=== PATIENT | male | born 1990 | race Asian ===

== ENCOUNTER 2017-06-25 13:58 | Inpatient (IN) | payer OTHER ==
[~2017-06-25] VITALS: Ht 167.6 cm; Wt 60.3 kg
[2017-06-25] MEDS ORDERED: ONDANSETRON HCL INJ 2 MG/ML VIAL ONE (15:25)
[2017-06-25] MEDS ORDERED: ROCURONIUM BROMIDE 10 MG/ML 5ML VIAL ONE (15:25)
[2017-06-25] MEDS ORDERED: LIDOCAINE HCL 2% LOCAL INJ 5 ML SDV VIAL INJ ONE (15:25)
[2017-06-25] MEDS ORDERED: DEXAMETHASONE SOD PHOS INJ 4 MG/ML VIAL ONE (15:25)
[2017-06-25] MEDS ORDERED: CEFOXITIN SOD 1 GM VIAL ONE (15:25)
[2017-06-25] MEDS ORDERED: PROPOFOL IV EMULSION 10 MG/ML 20 ML VIAL ONE (15:25)
[2017-06-25] MEDS ORDERED: SEVOFLURANE INHAL SOLN 250 ML PEN BTL ONE (15:25)
[2017-06-25] MEDS ORDERED: GLYCOPYRROLATE INJ 1MG/ 5 ML SYR ONE (15:25)
[2017-06-25] MEDS ORDERED: NEOSTIGMINE 5 MG/5ML SYR ONE (15:25)
[2017-06-25] MEDS ORDERED: SODIUM CHLORIDE 0.9% 1000ML 1,000 ML IV SCH (17:32)
[2017-06-25] MEDS ORDERED: ONDANSETRON HCL INJ 2 MG/ML VIAL IV PRN (17:45)
[2017-06-25] MEDS ORDERED: MIDAZOLAM HCL 2 MG/2 ML VIAL ONE (17:49)
[2017-06-25] MEDS ORDERED: FENTANYL CITRATE/PF 100MCG/2 ML INJ ONE (17:49)
[2017-06-25] MEDS ORDERED: MORPHINE SULFATE 2 MG/ML SYR IV PRN (18:00)
[2017-06-25] MEDS ORDERED: IOPAMIDOL 300MG/ML 100 ML INFUS..BTL IV ONE (18:15)
--- OUTSIDE RECORDS SUMMARY | 2017-06-25 19:24 | XMS REPORT | Continuity of Care Document ---
Author Author [facility] Organization [facility] Address [address] [address] Phone Unavailable Care Team Providers Care Pharmacy Technician Assistant Name Role Phone NO, PCP PCP Unavailable Advance Directives Directive Response Recorded Date/Time Does the patient have an advance directive? No 06/25/17 2:59pm If yes, is advance directive on file with [facility]? No 06/25/17 2:59pm If not on file with [facility] will patient provide a copy? No 06/25/17 2:59pm Do you have a Directive to Physician? No 06/25/17 2:59pm Do you have a Medical Power of Skydiving Instructor? No 06/25/17 2:59pm Do you have an out of hospital Do Not Resuscitate Order? No 06/25/17 2:59pm Do you have any special needs we should be aware of? No 06/25/17 2:59pm Do you have a support person here with you today? Yes 06/25/17 2:59pm Did patient receive Notice of Privacy Practices? Yes 06/25/17 2:59pm Did patient receive patient rights and responsibilities? Yes 06/25/17 2:59pm Problems Medical Problem Onset Date Status Appendicitis Unknown Medications No known medications. Social History Smoking Status Start Date Stop Date Never Smoker Hospital Discharge Instructions No hospital discharge instruction information available. Plan of Care Discharge Date 06/25/17 6:53pm Disposition ADMITTED Condition at Discharge Stable Forms Provided Work/School Excuse Prescriptions See Medication Section Functional Status No functional status information available. Allergies, Adverse Reactions, Alerts No known allergies. Immunizations No immunization information available. Vital Signs Acute Vital Signs Vital Response Date/Time Height 5 ft 6 in 06/25/2017 2:52pm Weight 133 lb 06/25/2017 2:52pm Body Mass Index 21.5 kg/m^2 06/25/2017 2:52pm Results No relevant diagnostic test, laboratory data and/or discharge summary information available. Procedures No procedure information available. Encounters Encounter Location Arrival/Admit Date Discharge/Depart Date Attending Provider Departed Emergency Room [facility] 06/25/17 1:58pm 6:53pm MINH PEREZ MD
[2017-06-25] MEDS ORDERED: BUPIVACAINE 0.25%/EPI 30ML SDV INJ ONE (19:32)
[2017-06-25 20:00] VITALS: BP 110/74
--- NOTE | 2017-06-25 21:41 | Consultation ---
DATE OF CONSULTATION: June 25, 2017 CHIEF COMPLAINT: Abdominal pain. HISTORY OF PRESENT ILLNESS: The patient is a 26-year-old male with 2-day history of pain in right lower quadrant without nausea or vomiting, fever or chills. 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 PAST MEDICAL HISTORY: Unremarkable for any chronic medical illness or previous surgery. DRUG ALLERGIES: None. SOCIAL HABITS: He does not smoke or drink alcohol. REVIEW OF SYSTEMS: No chest pain, shortness of breath or cough. EXAM VITALS: Stable. He is afebrile. GENERAL: Patient is awake, alert, in moderate discomfort. HEENT: Sclerae anicteric. NECK: Supple. LUNGS: Clear. HEART: Regular rate, rhythm. ABDOMEN: Soft with some guarding tenderness, right lower quadrant without rebound. EXTREMITIES: Without cyanosis, edema. The patient's white cell count is 6. CT scan showed inflamed appendix without rupture. ASSESSMENT: Acute appendicitis. PLAN: Laparoscopic appendectomy. Attendant risks discussed with patient through his musical instrument maker or repairer. Job#: [id number]
[2017-06-25] MEDS ORDERED: MORPHINE SULFATE 2 MG/ML SYR ONE (21:42)
--- NOTE | 2017-06-25 21:49 | Operative Report ---
DATE OF PROCEDURE: June 25, 2017 PREOPERATIVE DIAGNOSIS: Appendicitis. POSTOPERATIVE DIAGNOSIS: Appendicitis. OPERATIVE PROCEDURE: Laparoscopic appendectomy. ANESTHESIA: General endotracheal, Dr. Villafana (sp?). INDICATIONS: Udxaul-ptik-pkan-old male with 2-day history of pain in the right lower quadrant. CT scan showed appendicitis. He had consented for laparoscopic appendectomy. Attendant risks discussed. PROCEDURE FINDINGS: Acute appendicitis. DESCRIPTION OF PROCEDURE: The patient brought to the OR, intubated. Abdomen prepped with alcohol and draped in sterile fashion. An infraumbilical incision is made and a 12-mm port inserted, insufflation then begun. Under direct vision, other port sites placed in the right upper quadrant and suprapubic area. The appendix is grossly inflamed, but not perforated. The base of the appendix is exposed by taking down the mesoappendix using LigaSure instrument. The neck of the appendix has a fecalith and therefore we had to dissect out to the base of the cecum and take a wedge of the base of cecum without compromising the ileocecal valve. This is carried out with an Endo RITU stapler blue load firing twice. The specimen placed in Endopouch and retrieved out the peritoneal cavity. Staple line is checked for bleeding and hemostasis achieved. Irrigation then carried out. All ports removed under direct vision. Fascia is then closed with interrupted #0 Vicryl, skin is closed with subcuticular stitch. Patient was extubated and transported to recovery room. ESTIMATED BLOOD LOSS: 5 mL. Job#: [id number]
[2017-06-25] MEDS ORDERED: HYDROMORPHONE 1MG/1ML INJ ONE (22:03)
[2017-06-25 22:30] VITALS: BP 110/74
[2017-06-26] VITALS (7 sets, daily range): BP systolic 107–125; BP diastolic 57–74
[2017-06-26] MEDS: SODIUM CHLORIDE 0.9% 1000ML 1,000 ML IV SCH ×4 (00:04→23:30)
[2017-06-26] MEDS: MORPHINE SULFATE 2 MG/ML SYR IV PRN ×3 (00:06→11:38)
[2017-06-26] MEDS: ONDANSETRON HCL INJ 2 MG/ML VIAL IV PRN ×3 (00:06→11:40)
--- NOTE | 2017-06-26 10:07 | History and Physical ---
PRIMARY CARE PHYSICIAN: Unknown. CHIEF COMPLAINT: Right lower abdominal pain. 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 Currently, his pain is about 6/10. He denies any other symptoms. He has been started on clear liquid diet. PAST MEDICAL HISTORY: None. PAST SURGICAL HISTORY: None. ALLERGIES: PER ELECTRONIC MEDICAL RECORD. FAMILY HISTORY/SOCIAL HISTORY: Patient is . He has no children. 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 Denies any illicits, cigarettes, or alcohol. MEDICATIONS: None. REVIEW OF SYSTEMS: Denies any fever, chills, or sweats. PHYSICAL EXAMINATION: VITAL SIGNS: Have been reviewed. GENERAL APPEARANCE: Tired-appearing man resting in bed. HEENT: Anicteric. Pupils respond to light. No oral lesions. CARDIOVASCULAR: Normal S1 and S2. LUNGS: Moderate breath sounds. ABDOMEN: Soft, nondistended. He has dressing at the laparoscopic site. EXTREMITIES: No edema. SKIN: Dry. PSYCHIATRIC: Normal affect. LABS: Reviewed. MEDICATIONS: Reviewed. ASSESSMENT AND PLAN: A 26-year-old man. 1. Acute appendicitis. He is status post laparoscopic appendectomy. 2. Abdominal pain. Will use p.r.n. pain medication. 3. Prophylaxis. Will use sequential compression devices and Pepcid. 4. Disposition. Clear liquid diet now. Monitor today and defer to surgery when to discharge later today versus tomorrow. Job#: [id number]
[2017-06-26] MEDS: FAMOTIDINE 20 MG/2 ML VIAL IV SCH ×2 (10:15→17:56)
[2017-06-26 10:28] LABS: BASOPHILS % 0.1 % (0.0-1.0); HEMATOCRIT 43.3 % (38.2-49.6); HEMOGLOBIN 15.1 g/dL (14.0-18.0); LYMPHOCYTES # (AUTO) 0.6 (1.0-3.2); LYMPHOCYTES % 7.5 % (18.0-39.1); MEAN CORPUSCULAR HEMOGLOBIN 28.1 pg (28-32); MEAN CORPUSCULAR HGB CONC 34.9 g/dL (31-35); MEAN CORPUSCULAR VOLUME 80.5 fL (81-99); MONOCYTES # (AUTO) 0.5 (0.2-0.8); MONOCYTES % 6.5 % (4.4-11.3); NEUTROPHILS # (AUTO) 6.5 (2.1-6.9); NEUTROPHILS % 85.6 % (38.7-80.0); PLATELET COUNT 200 x10e3/uL (140-360); RED BLOOD COUNT 5.38 x10e6/uL (4.3-5.7); RED CELL DISTRIBUTION WIDTH 12.7 % (11.7-14.4)
[2017-06-26 10:42] LABS: ANION GAP 12.9 mmol/L (8-16); BLOOD UREA NITROGEN 8 mg/dL (7-26); BUN/CREATININE RATIO 10 (6-25); CALCIUM 9.4 mg/dL (8.4-10.2); CARBON DIOXIDE 26 mmol/L (22-29); CHLORIDE 104 mmol/L (98-107); CREATININE, SERUM 0.82 mg/dL (0.72-1.25); EST GLOMERULAR FILTRATION RATE > 60 ML/MIN (60-); GLUCOSE 102 mg/dL (74-118); MAGNESIUM 1.9 MG/DL (1.3-2.1); PHOSPHORUS 3.8 MG/DL (2.3-4.7); POTASSIUM 3.9 mmol/L (3.5-5.1); SODIUM 139 mmol/L (136-145)
[2017-06-26] MEDS ORDERED: ACETAMINOPHEN/CODEINE 300MG - 30MG TAB PO PRN (11:45)
[2017-06-26 12:22] LABS: CLARITY,URINE CLEAR (CLEAR); COLOR,URINE YELLOW (YELLOW); KETONES,URINE 2+ (NEGATIVE); LEUKOCYTE ESTERASE ,URINE NEGATIVE (NEGATIVE); NITRITE,URINE NEGATIVE (NEGATIVE); PROTEIN,URINE DIPSTICK NEGATIVE (NEGATIVE)
[2017-06-26 12:23] LABS: BACTERIA,URINE RARE /HPF; BILIRUBIN,URINE NEGATIVE (NEGATIVE); EPITHELIAL CELLS,URINE RARE /LPF; URINE UROBILINOGEN 0.2 mg/dL (0.2 - 1)
[2017-06-26] MEDS: TAMSULOSIN HCL 0.4 MG CAP PO SCH ×2 (12:51→20:52)
[2017-06-27] VITALS: BP 100/57
[2017-06-27] MEDS: SODIUM CHLORIDE 0.9% 1000ML 1,000 ML IV SCH ×2 (01:15→09:25)
[2017-06-27 04:00] VITALS: BP 114/58
[2017-06-27 08:34] VITALS: BP 117/70
[2017-06-27] MEDS: FAMOTIDINE 20 MG/2 ML VIAL IV SCH ×2 (09:25→15:21)
[2017-06-27] MEDS: TAMSULOSIN HCL 0.4 MG CAP PO SCH (09:25)
[2017-06-27] MEDS ORDERED: TYLENOL # 31 EA PO (09:30)
[2017-06-27] MEDS ORDERED: ZOFRAN ODT4 MG PO (09:30)
[2017-06-27] MEDS ORDERED: SENNA LAX8.6 MG PO (09:30)
[2017-06-27] MEDS ORDERED: FLOMAX0.4 MG PO (09:30)
[2017-06-27] MEDS ORDERED: FAMOTIDINE20 MG/2 ML IV (09:30)
--- NOTE | 2017-06-27 12:15 | Discharge Summary ---
DISCHARGE DIAGNOSES 1. Acute appendicitis. 2. Abdominal pain secondary to appendicitis. CHIEF COMPLAINT: Abdominal pain. HISTORY OF PRESENT ILLNESS: A 26-year-old male with lower abdominal pain. Please refer to the H\T\P for further details. HOSPITAL COURSE: The patient was found to have acute appendicitis. He underwent laparoscopic appendectomy. He did well. He is now on a diet. Pain is being controlled. He is doing better on pain medication. He is currently appropriate for discharge. Will follow. DISCHARGE MEDICATIONS: Per electronic medical records. Will see a physician in his [place]. He will be transferred to his home country today or tomorrow. He is to see his primary care physician in a few days. Continue pain medications. The patient is fit for travel and he is also fit to return to duty in one or two days SHEILA CROCKER MD Job#: [id number]
[2017-06-27 12:18] VITALS: BP 111/66
[2017-06-27 15:53] VITALS: BP 111/66
[2017-06-27 16:58] VITALS: BP 101/59
== END 2017-06-27 19:20 | disposition home or self-care (01) | DRG 343 ==
LOC: FSED 13:58 → EDBEDREQ 17:44 → FSED 18:53 → MED/SURG 19:21
PROVIDERS: ADMIT Internal Medicine; ATTEND Internal Medicine
PROC: 0DTJ4ZZ Resection of Appendix, Percutaneous Endoscopic Approach (ICD-10-PCS; principal; 2017-06-25 19:30)
DX: K35.80 Unspecified acute appendicitis (principal)
CPT/HCPCS: 36415; 74177; 80048; 80053; 81001; 81003; 83735; 84100; 85025; 88304; 99285; J0694; J1100; J1170; J2001; J2250; J2270; J2405; J7030; Q9967